=== PATIENT | female | born 2000 | race Caucasian/White ===

== ENCOUNTER 2019-04-08 12:12 | Inpatient (IN) | payer OTHER ==
[2019-04-08] MEDS: ONDANSETRON 4 MG INJ IV (13:24)
[2019-04-08] MEDS: SOD CHLORIDE 0.9% 1,000 ML IV (13:24)
[2019-04-08] MEDS: morphine 4 MG/ML VIAL IV (13:24)
[2019-04-08 13:41] LABS: ADD MAN DIFF? NO
[2019-04-08 13:46] LABS: WHITE BLOOD COUNT 20.1 10^3/ul (4.8-10.8)
[2019-04-08 13:46] LABS: BASOPHIL # 0.1 10^3/ul (0.0-0.1); BASOPHILS % 0.3 % (0.0-2.0); EOSINOPHILS # 0.1 10^3/ul (0.0-0.5); EOSINOPHILS % 0.4 % (0.0-7.0); HEMATOCRIT 42.2 % (37.0-47.0); HEMOGLOBIN 13.8 g/dl (12.0-16.0); LYMPHOCYTES # 1.2 10^3/ul (0.8-2.9); LYMPHOCYTES % 6.2 % (18.0-55.0); MEAN CORPUSCULAR HGB CONC 32.7 g/dl (32.0-37.0); MEAN CORPUSCULAR VOLUME 82.6 fl (72.0-104.0); MEAN PLATELET VOLUME 12.1 fl (7.4-10.4); MONOCYTE # 0.5 10^3/ul (0.3-0.9); MONOCYTES % 2.5 % (0.0-13.0); NEUTROPHIL # 18.1 10^3/ul (1.6-7.5); NEUTROPHILS % 90.2 % (30.0-74.0); PLATELET COUNT 156 10^3/UL (140-415); RED BLOOD COUNT 5.11 10^6/ul (4.20-5.40); RED CELL DISTRIBUTION WIDTH 12.7 % (11.5-14.5)
[2019-04-08 13:48] LABS: POSITIVE DIFF @See below
[2019-04-08 13:52] LABS: ADD UMIC YES; UR ASCORBIC ACID 20 mg/dL (NEGATIVE); UR BACTERIA FEW /HPF (NONE SEEN); UR BILIRUBIN (Dip) NEGATIVE (NEGATIVE); UR BLOOD (Dip) NEGATIVE (NEGATIVE); UR CLARITY CLOUDY (CLEAR); UR COLOR YELLOW (YELLOW); UR GLUCOSE (Dip) NEGATIVE (NEGATIVE); UR KETONES (Dip) 1+ mg/dL (NEGATIVE); UR LEUKOCYTE ESTERASE (Dip) 2+ Leu/ul (NEGATIVE); UR MUCUS FEW /HPF (NONE SEEN); UR NITRITE (Dip) NEGATIVE (NEGATIVE); UR RBC 2 /HPF (0-5); UR SPECIFIC GRAVITY (Dip) 1.023 (1.003-1.030); UR SQUAMOUS EPITHELIAL CELL MODERATE /HPF (FEW); UR TOTAL PROTEIN (Dip) NEGATIVE (NEGATIVE); UR UROBILINOGEN (Dip) NEGATIVE (NEGATIVE); UR WBC 9 /HPF (0-5)
[2019-04-08 14:06] LABS: ANISOCYTOSIS 1+ (0-0); BAND NEUTROPHILS #M 1.8 10^3/ul (0.0-0.6); BAND NEUTROPHILS % (M) 9 % (0-10); GIANT THROMBO% (M) 1 % (0-0); LYMPHOCYTES #M 1.2 10^3/ul (0.8-2.9); LYMPHOCYTES % (M) 6 % (18-55); MONOCYTE #M 0.4 10^3/ul (0.3-0.9); MONOCYTES % (M) 2 % (0-13); PLATELET ESTIMATE NORMAL; POIKILOCYTOSIS 1+ (0-0); SEGMENTED NEUTROPHILS (M) % 83 % (30-74); SMUDGE%M 4 % (0-0)
[2019-04-08 14:08] LABS: ALANINE AMINOTRANSFERASE 37 IU/L (13-69); ALBUMIN 4.6 g/dl (3.3-4.9); ALBUMIN/GLOBULIN RATIO 1.09; ALKALINE PHOSPHATASE 67 IU/L (42-121); ANION GAP 13 (5-13); ASPARTATE AMINO TRANSFERASE 49 IU/L (15-46); BILIRUBIN,INDIRECT 0.3 mg/dl (0-1.1); BILIRUBIN,TOTAL 0.3 mg/dl (0.2-1.3); BLOOD UREA NITROGEN 12 mg/dl (7-20); CALCIUM 9.8 mg/dl (8.4-10.2); CARBON DIOXIDE 18 mmol/L (21-31); CHLORIDE 108 mmol/L (97-110); CREATININE 0.88 mg/dl (0.44-1.00); Estimated GFR > 60 mL/min (>60); GLUCOSE 108 mg/dl (70-220); POTASSIUM 4.3 mmol/L (3.5-5.1); SODIUM 139 mmol/L (135-144); TOTAL PROTEIN 8.8 g/dl (6.1-8.1)
[2019-04-08] MEDS: SOD CHLORIDE 0.9% 100 ML (14:30)
[2019-04-08] MEDS: IOHEXOL 300MG/ML 150 ML BTL (14:31)
[2019-04-08] MEDS: D5W-0.45 NACL + KCL 20 MEQ 1,000 ML IV (15:19)
[2019-04-08] MEDS: PIPER-TAZO 3.375 GM IV (PMX) 100 ML IVPB ×2 (15:19→22:00)
[2019-04-08] MEDS ORDERED: ONDANSETRON 4 MG INJ IV ×3 (15:30→21:30)
[2019-04-08] MEDS ORDERED: ACETAMINOPHEN 325 MG TAB PO ×2 (15:30→21:30)
[2019-04-08] MEDS ORDERED: SOD CHLORIDE 0.9% 1,000 ML IV (19:00)
[2019-04-08] MEDS ORDERED: morphine 2 MG INJ IV (19:00)
[2019-04-08] MEDS ORDERED: DEXAMETHASONE 4 MG/ML 5 ML INJ (19:28)
[2019-04-08] MEDS ORDERED: FENTAnyl 50 MCG/ML VIAL ×2 (19:28→20:27)
[2019-04-08] MEDS ORDERED: CEFAZOLIN 1 GM INJ (19:28)
[2019-04-08] MEDS ORDERED: ROCURONIUM 50 MG INJ (19:28)
[2019-04-08] MEDS ORDERED: PROPOFOL 20 ML (19:28)
[2019-04-08] MEDS ORDERED: ONDANSETRON 4 MG INJ (19:28)
[2019-04-08] MEDS ORDERED: GLYCOPYRROLATE 0.4 MG INJ (19:28)
[2019-04-08] MEDS ORDERED: BUPIVACAINE 0.25%/EPI (SDV) 30 ML INJ (19:28)
[2019-04-08] MEDS ORDERED: NEOSTIGMINE 3 MG/3 ML SYRINGE (19:28)
[2019-04-08] MEDS ORDERED: MIDAZOLAM 1 MG/ML 2 ML INJ (19:28)
[2019-04-08] MEDS ORDERED: ROPIVACAINE 0.5 % 30 ML VIAL (19:32)
[2019-04-08] MEDS: BUPIVACAINE 0.25%/EPI (SDV) 30 ML INJ (20:21)
[2019-04-08] MEDS ORDERED: KETOROLAC 30 MG INJ (20:27)
[2019-04-08] MEDS ORDERED: MEPERIDINE 25 MG INJ (21:11)
[2019-04-08] MEDS ORDERED: HYDROmorphONE 1 MG/5 ML IV SYRINGE IV (21:30)
[2019-04-08] MEDS ORDERED: FENTAnyl 50 MCG/ML VIAL IV (21:30)
[2019-04-08] MEDS ORDERED: KETOROLAC 15 MG INJ IV (21:30)
[2019-04-08] MEDS: MEPERIDINE 25 MG INJ IV (21:43)
[2019-04-08] MEDS: D5-NS + KCL 20 MEQ 1,000 ML IV (23:04)
[2019-04-09 05:40] LABS: ADD MAN DIFF? NO
[2019-04-09] MEDS: PIPER-TAZO 3.375 GM IV (PMX) 100 ML IVPB ×2 (05:42→14:39)
[2019-04-09] MEDS: PANTOPRAZOLE 40 MG INJ IV (05:43)
[2019-04-09 06:12] LABS: ANION GAP 9 (5-13); BLOOD UREA NITROGEN 8 mg/dl (7-20); CALCIUM 9.2 mg/dl (8.4-10.2); CARBON DIOXIDE 21 mmol/L (21-31); CHLORIDE 109 mmol/L (97-110); CREATININE 0.84 mg/dl (0.44-1.00); Estimated GFR > 60 mL/min (>60); GLUCOSE 184 mg/dl (70-220); SODIUM 139 mmol/L (135-144)
[2019-04-09] MEDS: D5-NS + KCL 20 MEQ 1,000 ML IV ×2 (06:15→12:10)
[2019-04-09 06:46] LABS: ABNORMAL IP MESSAGE 1; BASOPHILS % 0.1 % (0.0-2.0); HEMATOCRIT 37.5 % (37.0-47.0); HEMOGLOBIN 12.2 g/dl (12.0-16.0); LYMPHOCYTES # 0.6 10^3/ul (0.8-2.9); MEAN CORPUSCULAR HEMOGLOBIN 26.9 pg (29.0-33.0); MEAN CORPUSCULAR HGB CONC 32.5 g/dl (32.0-37.0); MEAN CORPUSCULAR VOLUME 82.8 fl (72.0-104.0); MEAN PLATELET VOLUME 12.2 fl (7.4-10.4); MONOCYTE # 0.1 10^3/ul (0.3-0.9); MONOCYTES % 1.2 % (0.0-13.0); NEUTROPHIL # 8.5 10^3/ul (1.6-7.5); NEUTROPHILS % 92.2 % (30.0-74.0); PLATELET COUNT 204 10^3/UL (140-415); RED BLOOD COUNT 4.53 10^6/ul (4.20-5.40); RED CELL DISTRIBUTION WIDTH 13.1 % (11.5-14.5)
[2019-04-09 06:46] LABS: WHITE BLOOD COUNT 9.2 10^3/ul (4.8-10.8)
[2019-04-09 06:50] LABS: LYMPHOCYTES % 6.1 % (18.0-55.0); POSITIVE DIFF @See below
[2019-04-10] MEDS ORDERED: IBUPROFEN 600 MG TAB PO (21:30)
== END 2019-04-09 16:57 | disposition home or self-care (01) | DRG 342 ==
LOC: FTE 12:12 → 2NE 15:21
PROC: 0DTJ4ZZ Resection of Appendix, Percutaneous Endoscopic Approach (ICD-10-PCS; principal; 2019-04-08 20:00)
DX: K35.80 Unspecified acute appendicitis (principal); N39.0 Urinary tract infection, site not specified
CPT/HCPCS: 36415; 74177; 80048; 80053; 81001; 81025; 83605; 85025; 87040-91; 88304; 96374; 96375; 99285-25